=== PATIENT | female | born 1990 | race Caucasian/White ===

== ENCOUNTER → 2017-12-02 | Outpatient (CLI) | payer BC ==
--- NOTE | 2017-12-03 10:01 | XR ---
Limited cervical spine HISTORY: Neck pain, headache 3 views of the cervical spine There is reversal the normal cervical lordosis which could be due to muscle spasm. Cervical vertebral bodies show preserved height, alignment, and bone mineralization. Disc spaces and prevertebral soft tissues are normal. Question a spinal curvature. IMPRESSION: Reversal of cervical lordosis. Possible thoracic scoliosis.
== END ==
LOC: RADXRYALE 16:50
PROVIDERS: ATTEND Family Medicine
DX: M54.2 Cervicalgia (principal); R51 Headache
CPT/HCPCS: 72040

== ENCOUNTER → 2023-07-12 | Outpatient (CLI) | payer BC ==
--- NOTE | 2023-07-14 18:44 | XR ---
EXAMINATION TYPE: XR wrist complete 3 views LT, XR knee complete 3 views RT DATE OF EXAM: 07/12/2023 COMPARISON: NONE HISTORY: 33-year-old female [id number] PAIN LT WRIST, PAIN RT KNEE FINDINGS: Wrist: The radiocarpal and distal radial ulnar joint as well as mid carpal compartment appear intact. No acu te fracture, subluxation, or dislocation. Right knee: No knee joint effusion. Extensor mechanism appears intact. No acute fracture, subluxation, or disloca tion. IMPRESSION: 1. Left wrist: No acute osseous abnormality seen. 2. Right knee: No acute osseous abnormality seen.
== END | disposition home or self-care (01) ==
LOC: RADXRYALE 16:24
PROVIDERS: ATTEND Physician Assistant
DX: M25.532 Pain in left wrist (principal); M25.561 Pain in right knee